=== PATIENT | female | born 1955 | race Caucasian/White ===

== ENCOUNTER → 2018-02-28 | Outpatient (CLI) | payer BC ==
[~2018-02-28] MED LIST: CALC600T12 PO; ESTR1TAB22 PO; LISI1TAB10 PO; METF-399 PO; SPIR25TA5 PO
--- NOTE | 2018-02-28 12:41 | Diagnostic Imaging Report ---
INDICATION: Routine screening. COMPARISON: 02/02/2017 and 02/02/2016. TECHNIQUE: 2D and 3D bilateral screening mammography was performed with CAD. FINDINGS: Both breasts are heterogeneously dense, limiting the sensitivity of mammography. Benign-appearing parenchymal and vascular calcifications are identified bilaterally. A nodular density in the outer left breast at mid depth on the CC view appears slightly more prominent than on the prior exams. Additional views are recommended. No definite correlate on the MLO view is seen; however, this appears to be inferiorly located. The right breast is unremarkable. The axillae are unremarkable. IMPRESSION: Left breast density. Additional views are recommended. ACR BI-RADS Category 0: Incomplete. (Needs additional imaging evaluation). Result letter will be mailed to the patient. Note: At least 10% of breast cancer is not imaged by mammography. Dictated by: Dictated on workstation # [id number]
== END ==
LOC: RAD 08:30
PROVIDERS: ATTEND Obstetrics & Gynecology
DX: Z12.31 Encounter for screening mammogram for malignant neoplasm of breast (principal); R92.8 Other abnormal and inconclusive findings on diagnostic imaging of breast
CPT/HCPCS: 77067

== ENCOUNTER → 2018-03-22 | Outpatient (CLI) | payer BC ==
--- NOTE | 2018-03-22 13:16 | Diagnostic Imaging Report ---
Indication: Left breast density. Patient presents for additional views. Comparison is made with recent screening study from 02/28/2018. Unilateral left 2-D and 3-D diagnostic mammography was performed including spot compression CC, rolled CC and 90 degree lateral views. Area of nodularity in the outer left breast has resolved with additional views and this may have represented superimposed tissue versus resolution of the previously noted cyst. No mass or suspicious calcifications are seen. There are benign calcifications present. Impression: BI-RADS 2 Additional views fail to demonstrate a discrete mass. The patient may return to routine annual screening mammography. ACR BI-RADS Category 2: Benign findings. Result letter will be mailed to the patient. Note: At least 10% of breast cancer is not imaged by mammography. Dictated by: Dictated on workstation # [id number]
== END ==
LOC: RAD 12:30
PROVIDERS: ATTEND Obstetrics & Gynecology
DX: R92.2 Inconclusive mammogram (principal)

== ENCOUNTER → 2019-03-01 | Outpatient (CLI) | payer BC ==
[~2019-03-01] MED LIST changes: -LISI1TAB10 PO; +LISI1TAB26 PO
--- NOTE | 2019-03-01 12:07 | Diagnostic Imaging Report ---
INDICATION: Routine screening. Comparison is made with prior mammogram 02/28/2018 and 02/02/2017. 2-D and 3-D bilateral screening mammography was performed with CAD. Both breasts remain heterogeneously dense, limiting the sensitivity of mammography. A benign parenchymal and vascular calcifications are noted bilaterally. No dominant mass or malignant appearing microcalcifications are seen. Axillae are unremarkable. IMPRESSION: BI-RADS Category 2 No mammographic features suspicious for malignancy are identified. ACR BI-RADS Category 2: Benign findings. Result letter will be mailed to the patient. Note: At least 10% of breast cancer is not imaged by mammography. Dictated by: Dictated on workstation # [id number]
== END ==
LOC: RAD 10:34
PROVIDERS: ATTEND Obstetrics & Gynecology
DX: Z12.31 Encounter for screening mammogram for malignant neoplasm of breast (principal)
CPT/HCPCS: 77067

== ENCOUNTER → 2020-07-07 | Outpatient (CLI) | payer BC, MEDICARE ==
[~2020-07-07] MED LIST changes: -CALC600T12 PO; +CLC600T PO
--- NOTE | 2020-07-07 12:16 | Diagnostic Imaging Report ---
INDICATION: Routine screening. Comparison is made with prior mammogram 03/01/2019 and 02/28/2018. 2-D and 3-D bilateral screening mammography was performed with CAD. Both breasts are heterogeneously dense, limiting the sensitivity of mammography. There are scattered benign calcifications. No mass or malignant appearing microcalcifications are seen. Axillae are unremarkable. IMPRESSION: BI-RADS Category 2 No mammographic features suspicious for malignancy are identified. ACR BI-RADS Category 2: Benign findings. Result letter will be mailed to the patient. Note: At least 10% of breast cancer is not imaged by mammography. Dictated by: Dictated on workstation # [id number]
== END ==
LOC: RAD 10:33
PROVIDERS: ATTEND Obstetrics & Gynecology
DX: Z12.31 Encounter for screening mammogram for malignant neoplasm of breast (principal)
CPT/HCPCS: 77063; 77067

== ENCOUNTER → 2021-07-10 | Outpatient (CLI) | payer MEDICARE ==
[~2021-07-10] MED LIST changes: +CALC600T91 PO; -CLC600T PO; -LISI1TAB26 PO; +LISI1TAB48 PO
--- NOTE | 2021-07-10 13:22 | Diagnostic Imaging Report ---
Indication: Routine screening. Comparison is made with prior mammogram 07/07/2020 and 03/01/2019. 2-D and 3-D bilateral screening mammography was performed with CAD. CAD is utilized. The current study was also evaluated with a Computer Aided Detection (CAD) system. Both breasts are heterogeneously dense, limiting the sensitivity of mammography. There is a density in the central right breast on the CC view posterior depth which appears more prominent than on prior studies. No definite correlate on the MLO view is identified. Other scattered benign parenchymal and vascular calcifications bilaterally. Axillae are unremarkable. IMPRESSION: BI-RADS 0 Right breast density. Additional views are recommended for further evaluation. ACR BI-RADS Category 0: Incomplete. (Needs additional imaging evaluation). Result letter will be mailed to the patient. Note: At least 10% of breast cancer is not imaged by mammography. Dictated by: Dictated on workstation # [id number]
== END ==
LOC: RAD 08:15
PROVIDERS: ATTEND Internal Medicine
DX: Z12.31 Encounter for screening mammogram for malignant neoplasm of breast (principal)
CPT/HCPCS: 77063; 77067

== ENCOUNTER → 2021-07-16 | Outpatient (CLI) | payer MEDICARE ==
--- NOTE | 2021-07-16 19:08 | Diagnostic Imaging Report ---
INDICATION: Right breast density. Patient presents for additional views. COMPARISON: Correlation is made with screening study from 07/10/2021. EXAMINATION: Unilateral right 2D and 3D diagnostic mammography was performed with CAD. This included spot compression CC, rolled CC as well as conventional 90 degree lateral views. FINDINGS: Additional views fail to demonstrate a discrete mass. The area of density noted centrally on the CC view appears to represent superimposed fibroglandular tissue. This did resolve with additional views. No other abnormalities are seen. IMPRESSION: Additional views fail to demonstrate a discrete mass. The patient may return to routine annual screening mammography. ACR BI-RADS Category 1: Negative. Result letter will be mailed to the patient. Note: At least 10% of breast cancer is not imaged by mammography. Dictated by: Dictated on workstation # [id number]
== END ==
LOC: RAD 13:15
PROVIDERS: ATTEND Internal Medicine
DX: R92.8 Other abnormal and inconclusive findings on diagnostic imaging of breast (principal)
CPT/HCPCS: 77065; G0279

== ENCOUNTER 2022-09-14 05:29 | Outpatient (CLI) | payer MEDICARE ==
[~2022-09-14] VITALS: Ht 162.6 cm; Wt 87.0 kg
[2022-09-14] MEDS ORDERED: MULT-1136 PO (09:24)
[2022-09-14] MEDS ORDERED: GLUC1TAB21 PO (13:34)
== END 2022-09-14 15:39 ==
LOC: PREOP 05:29
PROVIDERS: ATTEND Obstetrics & Gynecology
DX: Z01.818 Encounter for other preprocedural examination (principal)

== ENCOUNTER 2022-09-21 06:45 | Day surgery (SDC) | payer MEDICARE, OTHER ==
[~2022-09-21] VITALS: Ht 162 cm; Wt 87.0 kg
[2022-09-21] VITALS (12 sets, daily range): BP systolic 111–145; BP diastolic 62–97
[~2022-09-21 06:45] MED LIST changes: +GLUC1TAB21 PO; +MULT-1136 PO
[2022-09-21] MEDS ORDERED: metroNIDAZOLE 500MG/100ML IVPB 100 ML IV ONE (07:00)
[2022-09-21] MEDS ORDERED: ceFAZolin INJECTION 2,000 MG in NS (IVPB) 50 ML IV ONE (07:00)
[2022-09-21 07:25] LABS: BASOPHILS # (AUTO) 0.1 10^3/uL (0.0-0.1); BASOPHILS % (AUTO) 1 % (0-10); EOSINOPHILS # (AUTO) 0.3 10^3/uL (0.0-0.3); EOSINOPHILS % (AUTO) 3 % (0-10); HEMATOCRIT 36 % (35-52); LYMPHOCYTES # (AUTO) 2.3 10^3/uL (1.0-4.0); LYMPHOCYTES % (AUTO) 24 % (12-44); MEAN CORPUSCULAR HEMOGLOBIN 32 pg (25-34); MEAN CORPUSCULAR HGB CONC 36 g/dL (32-36); MEAN CORPUSCULAR VOLUME 88 fL (80-99); MEAN PLATELET VOLUME 10.1 fL (9.0-12.2); MONOCYTES # (AUTO) 0.8 10^3/uL (0.0-1.0); MONOCYTES % (AUTO) 8 % (0-12); NEUTROPHILS # (AUTO) 6.2 10^3/uL (1.8-7.8); NEUTROPHILS % (AUTO) 64 % (42-75); PLATELET COUNT 274 10^3/uL (130-400); WHITE BLOOD COUNT 9.6 10^3/uL (4.3-11.0)
[2022-09-21] MEDS ORDERED: ESTROGENS CONJ. CREAM 30 GM (PREMARIN) TUBE ONE ×2 (07:37→07:55)
[2022-09-21] MEDS ORDERED: BUPIVACAINE 0.25% 30 ML (SENSORCAINE) VIAL ONE (07:38)
[2022-09-21] MEDS: LACTATED RINGERS 1,000 ML IV PRN ×3 (07:44→10:25)
[2022-09-21] MEDS ORDERED: VASOPRESSIN INJECTION 20 UNIT/ML VIAL ONE (07:57)
[2022-09-21] MEDS ORDERED: proPOfol 200 MG/20 ML (DIPRIVAN) VIAL IV ONE (08:05)
[2022-09-21] MEDS ORDERED: SEVOFLURANE (ULTANE) 15 ML INHAL SOLN ONE ×3 (08:05→11:09)
[2022-09-21] MEDS ORDERED: ONDANSETRON 4 MG/2 ML (SDV) Z0FRAN ONE (08:05)
[2022-09-21] MEDS ORDERED: LIDOCAINE PF 2% 5 ML (XYLOCAINE) VIAL ONE (08:05)
[2022-09-21] MEDS ORDERED: fentaNYL INJ 100 MCG/2 ML AMP ONE (08:06)
[2022-09-21] MEDS ORDERED: MIDAZOLAM 2 MG/2 ML (VERSED) VIAL ONE (08:06)
[2022-09-21] MEDS ORDERED: DOCUSATE SODIUM 100 MG (COLACE) CAP PO PRN (09:15)
[2022-09-21] MEDS ORDERED: BENZOCAINE LOZENGES 1 EACH LOZENGE MM PRN (09:15)
[2022-09-21] MEDS ORDERED: SIMETHICONE 80 MG (MYLICON) CHEW PO PRN (09:15)
[2022-09-21] MEDS ORDERED: HYDROcodone/APAP 7.5 MG/325 MG (LORTAB, LORCET PLUS) TABLET PO PRN (09:15)
[2022-09-21] MEDS ORDERED: ONDANSETRON 4 MG/2 ML (SDV) Z0FRAN IV PRN (09:15)
[2022-09-21] MEDS ORDERED: ANTACID SUSP 30 ML UDC (MYLANTA) PO PRN (09:15)
[2022-09-21] MEDS ORDERED: ZOLPIDEM 5 MG (AMBIEN) TAB PO PRN (09:15)
[2022-09-21] MEDS ORDERED: IBUPROFEN 600 MG (MOTRIN) TAB PO PRN (09:15)
--- NOTE | 2022-09-21 09:15 | Progress Note-Pre Operative ---
Pre-Operative Progress Note Date of Available H&P: Sep 21, 2022 Date H&P Reviewed: Sep 21, 2022 Time H&P Reviewed: 09:15 History & Physical: H&P Reviewed, Patient Examed, No changes noted, Changes noted below Pre-Operative Diagnosis: POP, Cystocele SANDRA LUIS DO Sep 21, 2022 09:15
--- NOTE | 2022-09-21 09:19 | Discharge Inst-Women's Service ---
Discharge Inst-Women's Serv Depart Medication/Instructions New, Converted or Re-Newed RX: Transmitted to Pharmacy Problems Reviewed?: Yes Consults/Follow Up Additional Follow Up: Yes Orders/Referrals Dr. Garcia in 7-10 days and in 8 weeks Activity Activity: Activity as Tolerated Driving Instructions: No Driving for 1 Week NO SMOKING: NO SMOKING Nothing Inside Vagina: No Douching, No Ol[place], No Tampons Diet Discharge Diet: No Restrictions Symptoms to Report to : Bleeding Excessive, Pain Increased, Fever Over 101 Degrees F, Vaginal Bleeding Increase, Questions/Concerns For Any Problems or Questions: Contact Your Physician Skin/Wound Care Infection Signs and Symptoms: Increased Redness, Foul Odor of Wound, Increased Drainage, Skin Itchy or Has a Rash, Increased Swelling, Temperature Above 101 F Operative Area Clean and Dry: Keep Incision Clean/Dry Stitches/Sondra/Dermabond: Dermabond, Care of Stitches Bathing Instructions: SANDRA Goldman DO Sep 21, 2022 09:18
[2022-09-21] MEDS ORDERED: HYDR-34 PO (09:20)
[2022-09-21] MEDS ORDERED: SIME80TA16 PO (09:20)
[2022-09-21] MEDS ORDERED: DOCU100C37 PO (09:20)
[2022-09-21] MEDS ORDERED: IBUP-1773 PO (09:20)
[2022-09-21] MEDS ORDERED: NS (IVPB) 100 ML ONE (09:45)
[2022-09-21] MEDS ORDERED: BUPIVACAINE 0.25% 30 ML (SENSORCAINE) VIAL INJ ONE (09:45)
[2022-09-21] MEDS ORDERED: ESTROGENS CONJ. CREAM 30 GM (PREMARIN) TUBE VG ONE (09:57)
[2022-09-21] MEDS ORDERED: VASOPRESSIN INJECTION 20 UNIT/ML VIAL INJ ONE (09:58)
[2022-09-21] MEDS ORDERED: NS 100 ML (IVPB) BAG INJ ONE (09:59)
[2022-09-21] MEDS ORDERED: HYDROmorphone 2 MG/ML VIAL (DILAUDID) ONE (10:23)
[2022-09-21] MEDS ORDERED: KETOROLAC 30 MG/ML VIAL ONE (10:25)
[2022-09-21] MEDS: KETOROLAC 30 MG/ML VIAL IVP PRN ×2 (11:00→17:15)
[2022-09-21] MEDS ORDERED: ONDANSETRON 4 MG/2 ML (SDV) Z0FRAN IVP PRN (11:30)
[2022-09-21] MEDS ORDERED: HYDROmorphone 2 MG/ML VIAL (DILAUDID) IV ONE (11:30)
[2022-09-21] MEDS: LACTATED RINGERS 1,000 ML IV SCH ×2 (14:02→19:58)
--- NOTE | 2022-09-21 17:30 | OPERATIVE REPORT ---
PREOPERATIVE DIAGNOSES: 1. A 67-year-old female with pelvic organ prolapse. 2. Cystocele. 3. Rectocele. POSTOPERATIVE DIAGNOSES: 1. A 67-year-old female with pelvic organ prolapse. 2. Cystocele. 3. Rectocele. PROCEDURE: 1. Robotic-assisted total laparoscopic hysterectomy with bilateral salpingo-oophorectomy. 2. Anterior colporrhaphy. 3. Posterior colporrhaphy and perineoplasty. SURGEON: Diaz Luis DO PARK WORKER SUPERVISOR: Janice Shin DNP was necessary for manipulation and retraction throughout the procedure. ANESTHESIA: General. ESTIMATED BLOOD LOSS: 200 mL URINE OUTPUT: 200 mL clear at end of procedure. FLUIDS: 1500 mL lactated Ringer's solution. FINDINGS: A bulky and enlarged uterus consistent with fibroid uterus. Grossly normal appearing bilateral fallopian tubes with some paratubal cyst. Grossly normal appearing bilateral ovaries, a grade III cystocele, grade II to III rectocele. SPECIMEN SENT: Uterus, bilateral fallopian tubes and ovaries. INDICATIONS FOR PROCEDURE: This 67-year-old female was a patient consulted our office for ongoing issues with pelvic organ prolapse. The patient is doing this for years; however, she a big trip planned for later this year, wishes to proceed with taking care of this definitively to help her an order to have better quality of life better from here on out. We discussed with the patient the alternative of pessary placement. The patient still sexually active with her prefer to have this corrected surgically. Risks of procedure discussed with the patient in detail including risk of bleeding, infection, damage to surrounding structures including but not limited to bowel, bladder, ureter, kidneys, possible need for reoperation, postoperative complications that may occur, recovery timeframe, risk from anesthesia, risk for potential anterior and posterior colporrhaphy breakdown and even were discussed with the patient. After all of her questions were answered, consent was obtained, the patient was taken to the operating room. OPERATIVE REPORT IN DETAIL: Once in the operating room, general anesthesia was found to be adequate. She was placed in dorsal lithotomy position, prepped and draped in normal sterile fashion. Timeout was performed. Dietz catheter was placed using sterile technique. A weighted speculum inserted to the patient's vagina. Right angle retractor was used to visualize cervix, which was grasped at 12 o'clock position using a long Allis clamp and then placed an 0 Vicryl suture. The anterior lip of the cervix and gently sound the uterine cavity depth using the suture through the anterior lip of the cervix as my retraction point from this point. There was a cavity depth of 8 cm. I then selected an 8 cm MILLER uterine manipulator tip and a 4 cm colpotomy ring. The manipulator tip was advanced into the uterus. The uterus where the balloon was deployed and the colpotomy ring is advanced around the vaginal fornix. Once this was secured on the cervix and the uterus. I then removed all the instruments from the patient's vagina, performed change of gloves. I turned my attention to the abdomen where subcostally on the left side at the midclavicular line, I introduced the Veress needle through the skin until intraperitoneal placement was confirmed using saline drop test. An opening pressure of 6 mmHg was noted. I used CO2 insufflation to maximum pressure of 15 mmHg, at which point I make an 8 mm infraumbilical incision with a knife and directed blunt laparoscopic da Kyler camera trocar through the incision to ensure proper placement was confirmed using da Kyler laparoscope. There was no evidence of damage upon my entry site. A brief scan of the upper abdominal anatomy appears to be grossly normal. The Veress needle was identified and removed without evidence of damage in Veress entry site. I then had the patient placed in steep Trendelenburg where I am able to visualize all my pelvic anatomy as defined in my findings above. I placed 2 lateral trocars using both 8 mm trocars were approximately 8-10 cm lateral to my infraumbilical trocar. Once both these trocars were in place, I bring the da Kyler robot and docked in appropriate fashion, placing the SynchroSeal device in left hand and monopolar jose in the right hand. I took my place at the [employer] operative console and performed the following dissection bilaterally using the da Kyler robot. Starting at the infundibulopelvic ligament, I sealed and transected using a SynchroSeal device and then grasped the round ligament was sealed and transected using a SynchroSeal device. I then used a SynchroSeal device to dissect and sealed down the broad ligament until I reached the lower uterine segment, at which point I the anterior and posterior leaflets of the broad ligament. The anterior leaf dissection was taken to the anterior vaginal fornix. The posterior leaflet was taken around the posterior vaginal fornix. This allows me to skeletonize the uterine vessels laterally, which I sealed and transected using a SynchroSeal device and then created a colpotomy at 12 o'clock position using monopolar jose and take circumferentially around the vaginal fornix amputating the cervix away from the vagina. The entire cervix, uterus and bilateral fallopian tubes and ovaries were removed through the vagina at that point. I then closed the vaginal cuff using 2-0 V-Loc in a running fashion. Copious suspended to the uterosacral ligaments, after which there was no active bleeding noted from my dissection planes. I then undocked da Kyler robot and proceeded with remainder of the case laparoscopically. I copiously irrigated the pelvis using normal saline. Once again, there was active bleeding from my dissection planes. I placed Surgiflo hemostatic agent over all my planes of dissection to ensure excellent postoperative hemostasis. The patient was taken out of steep Trendelenburg while I removed the lateral trocars under direct visualization, laparoscope. The infraumbilical trocars left in place to release the remainder of insufflation and to introduce 10 mL of 0.25% Marcaine in the peritoneal cavity for postoperative pain management. I then removed this trocar as well. The skin reapproximated using 4-0 Monocryl and interrupted subcuticular stitches. Dermabond was applied to incision and sterile dressing with adhesive white tape. I then turned my attention back to the pelvis where I addressed the cystocele. The margins of the cystocele defect are still easily notable. I infiltrated the submucosa of the cystocele defect with vasopressin concentration of 20 units in 100 mL of normal saline. This was done until we see appropriate blanching of the mucosa. I then made a lateral incision at the distal margin of the cystocele and undermined down the midline of the cystocele using Metzenbaum scissors and then make an incision down the midline of the cystocele. I elevated the lateral aspects of my incision and dissected off the underlying vesicovaginal fascia. I then trimmed the excess mucosa and plicated the vesicovaginal fascia using 0 Vicryl suture in interrupted fashion. I then reapproximated the mucosa using 3-0 Vicryl suture in a running locked fashion. I then took my attention to the rectocele. Starting at the perineal body, I infiltrate this area and the rectocele margin itself and the submucosa of the rectocele margins with the same concentration of vasopressin. I then created a triangular incision on the perineal body and excise the cutaneous tissue from this incision. I then undermined down the submucosa into the vagina down the midline of the rectocele defect using Metzenbaum scissors and make an incision down this undermining dissection. I then elevate the lateral aspects of the mucosa off of the underlying the rectovaginal fascia and dissected off the underlying fascia until the lateral margins of the rectocele are noted and achieved, I then trimmed the excess of vaginal mucosa that was left behind. I then reapproximate the rectovaginal fascia and mucosa in one layer using 2-0 Vicryl suture in a running locked fashion until I encountered the mucocutaneous junction, at which point I reapproximated the perineal body using 3-0 Vicryl suture in an interrupted crown stitch and then I continued with reapproximated submucosally and subcuticularly using 3-0 Vicryl suture, after which there was good reduction of both the cystocele and rectocele noted. There is no active bleeding noted from the vagina. I then packed the vagina using Premarin-soaked vaginal packing. I leave the Dietz catheter in place. The patient tolerated the procedure well and was taken to recovery area in stable condition. Lap and sponge counts were correct at the end of the procedure. Instrument counts correct as well. Two grams of Ancef and 500 mg of Flagyl were given preoperatively for infection prophylaxis. Job ID: [id number] DocumentID: [id number] Dictated Date: 09/21/2022 12:38:52 Rail Tractor Operator Date: 09/21/2022 17:29:00 Dictated By: DIAZ LUIS DO
[2022-09-21] MEDS ORDERED: FUROSEMIDE 40 MG/4 ML INJ (LASIX) IVP NR (19:00)
[2022-09-21] MEDS ORDERED: NS IV 500 ML 500 ML IV SCH (19:00)
[2022-09-22 02:15] VITALS: BP 104/62
[2022-09-22] MEDS: KETOROLAC 30 MG/ML VIAL IVP PRN ×2 (02:31→08:50)
[2022-09-22] MEDS: LACTATED RINGERS 1,000 ML IV SCH (06:34)
[2022-09-22 08:35] VITALS: BP 145/73
--- NOTE | 2022-09-22 09:55 | Anesthesia-General Post-Op ---
General Patient Condition Mental Status/LOC: Same as Preop Cardiovascular: Satisfactory Nausea/Vomiting: Absent Respiratory: Satisfactory Pain: Controlled Complications: Absent Post Op Complications Complications None Follow Up Care/Instructions Patient Instructions None needed. Anesthesia/Patient Condition Patient Condition Patient is doing well, no complaints, stable vital signs, no apparent adverse anesthesia problems. No complications reported per nursing. SEJAL CLEMONS CRNA Sep 22, 2022 09:55
[2022-09-22] MEDS ORDERED: BENZOCAINE/MENTHOL (DERMOPLAST) 56 ML CAN TP ONE (12:37)
[2022-09-22] MEDS ORDERED: BENZOCAINE/MENTHOL (DERMOPLAST) 56 ML CAN TP PRN (14:00)
== END 2022-09-22 12:45 | disposition home or self-care (01) ==
LOC: SDC 06:45 → EDSTATUS 09:30 → WS 12:20 → SDC 09-22 12:45
PROVIDERS: ATTEND Obstetrics & Gynecology
DX: D25.1 Intramural leiomyoma of uterus (principal); N81.9 Female genital prolapse, unspecified; N81.10 Cystocele, unspecified; N81.89 Other female genital prolapse; N81.6 Rectocele; N80.03 Adenomyosis of the uterus; N83.8 Other noninflammatory disorders of ovary, fallopian tube and broad ligament; N94.89 Other specified conditions associated with female genital organs and menstrual cycle; N39.3 Stress incontinence (female) (male); E66.9 Obesity, unspecified; Z68.33 Body mass index [BMI] 33.0-33.9, adult; Z78.9 Other specified health status
CPT/HCPCS: 36415; 85025; 86850; 86900; 86901; 87081

== ENCOUNTER → 2022-11-19 | Outpatient (CLI) | payer MEDICARE, OTHER ==
[~2022-11-19] MED LIST changes: +DOCU100C37 PO; +HYDR-34 PO; +IBUP-1773 PO; +SIME80TA16 PO
--- NOTE | 2022-11-19 12:20 | Diagnostic Imaging Report ---
INDICATION: Routine screening. Comparison is made with prior mammogram from 07/10/2021 and 07/07/2020. 2-D and 3-D bilateral screening mammography was performed with CAD. Both breasts are heterogeneously dense, limiting the sensitivity of mammography. The parenchymal pattern is stable. No dominant mass or malignant-appearing microcalcifications are seen. There are benign calcifications bilaterally. Axillae are unremarkable. IMPRESSION: No mammographic features suspicious for malignancy are identified. ACR BI-RADS Category 2: Benign findings. Result letter will be mailed to the patient. Note: At least 10% of breast cancer is not imaged by mammography. BI-RADS Category 2 Dictated by: Dictated on workstation # [id number]
== END ==
LOC: RAD 08:00
PROVIDERS: ATTEND Nurse Practitioner Women's Health
DX: Z12.31 Encounter for screening mammogram for malignant neoplasm of breast (principal)
CPT/HCPCS: 77063; 77067